=== PATIENT | female | born 1970 | race Hispanic/Latino ===

== ENCOUNTER 2017-07-09 12:59 | Emergency (ER) | payer BC, OTHER ==
[2017-07-09 13:18] LABS: BASOPHILS % (AUTO) 0.7 % (0.0-5.0); EOSINOPHILS % (AUTO) 1.5 % (0.0-8.0); HEMATOCRIT 40.2 % (36-48); LYMPHOCYTES % (AUTO) 30.7 % (21.0-51.0); MEAN CORPUSCULAR HGB CONC 34.1 g/dL (32.0-36.0); MONOCYTES % (AUTO) 6.9 % (3.0-13.0); NEUTROPHILS % (AUTO) 60.2 % (40.0-77.0); NUCLEATED RED BLOOD CELLS 0.1 % (0.0-0.19); PLATELET COUNT (AUTO) 228 K/uL (130-400); RED BLOOD CELL COUNT(AUTO) 4.73 MIL/uL (4.00-5.50); WHITE BLOOD COUNT (AUTO) 6.7 K/uL (4.8-10.8)
[2017-07-09] MEDS ORDERED: DICYCLOMINE HCL 20 MG TAB ONE (13:24)
[2017-07-09] MEDS ORDERED: LIDOCAINE HCL 2% VISCOUS 15 ML UDCUP ONE (13:24)
[2017-07-09] MEDS ORDERED: MAG HYDROX/AL HYDROX/SIMETH ES 30 ML SUSP UDCUP ONE (13:24)
[2017-07-09 13:27] LABS: CREATININE 0.7 mg/dL (0.5-1.5); POTASSIUM 3.7 mmol/L (3.5-5.1)
[2017-07-09 13:32] LABS: INR 0.99 (0.85-1.15); PARTIAL THROMBOPLASTIN TIME 26.2 SEC (26.3-35.5); PROTHROMBIN TIME 10.4 SEC (9.6-11.6)
[2017-07-09 13:50] LABS: ALBUMIN 4.2 g/dL (3.5-5.0); BILIRUBIN,TOTAL 0.6 mg/dL (0.2-1.0); CREATINE KINASE MB 0.6 ng/mL (0.5-3.6); TOTAL PROTEIN, SERUM 7.6 g/dL (6.0-8.3)
== END 2017-07-09 16:02 | disposition home or self-care (01) ==
LOC: EDH 12:59
DX: R13.10 Dysphagia, unspecified (principal); Z90.49 Acquired absence of other specified parts of digestive tract
CPT/HCPCS: 36415; 80053; 82550; 82553; 84484; 85025; 85610; 85730; 93005

== ENCOUNTER 2019-09-28 18:05 | Emergency (ER) | payer BC, OTHER ==
[2019-09-28 18:42] LABS: BASOPHILS % (AUTO) 0.5 % (0.0-5.0); EOSINOPHILS % (AUTO) 0.6 % (0.0-8.0); HEMATOCRIT 43.2 % (36-48); MEAN CORPUSCULAR HEMOGLOBIN 27.6 pg (27.0-33.0); MEAN CORPUSCULAR HGB CONC 32.2 g/dL (32.0-36.0); MEAN CORPUSCULAR VOLUME 85.7 fL (79-99); MONOCYTES % (AUTO) 6.6 % (3.0-13.0); NEUTROPHILS % (AUTO) 75.8 % (40.0-77.0); PLATELET COUNT (AUTO) 244 K/uL (130-400); RED BLOOD CELL COUNT(AUTO) 5.04 MIL/uL (4.00-5.50); WHITE BLOOD COUNT (AUTO) 11.2 K/uL (4.8-10.8)
[2019-09-28 18:52] LABS: CREATININE 0.8 mg/dL (0.5-1.5); POTASSIUM 3.6 mmol/L (3.5-5.1)
[2019-09-28] MEDS ORDERED: ASPIRIN 325 MG TABLET ONE (18:52)
[2019-09-28 18:57] LABS: ALBUMIN 4.4 g/dL (3.5-5.0); BILIRUBIN,TOTAL 0.6 mg/dL (0.2-1.0); TOTAL PROTEIN, SERUM 7.8 g/dL (6.0-8.3)
[2019-09-28] MEDS ORDERED: ONDANSETRON HCL 4 MG/2 ML VIAL ONE (19:23)
[2019-09-28] MEDS ORDERED: FAMOTIDINE/PF 20 MG/2 ML VIAL IV ONE (19:24)
[2019-09-28 19:40] LABS: INR 0.93 (0.85-1.15); PROTHROMBIN TIME 10.1 SEC (9.6-11.6)
[2019-09-28] MEDS ORDERED: LIDOCAINE HCL 2% VISCOUS 15 ML UDCUP ONE (20:22)
[2019-09-28] MEDS ORDERED: MAG HYDROX/AL HYDROX/SIMETH ES 30 ML SUSP UDCUP ONE (20:23)
== END 2019-09-28 21:46 | disposition home or self-care (01) ==
LOC: EDH 18:05
DX: K29.70 Gastritis, unspecified, without bleeding (principal); K20.9 Esophagitis, unspecified; I10 Essential (primary) hypertension; Z90.49 Acquired absence of other specified parts of digestive tract
CPT/HCPCS: 36415; 71045; 80053; 82550; 83690; 84484 ×2; 85025; 85610; 85730; 93005 ×2; 96361; 96374; 96375; 99285; J2405; J3490

== ENCOUNTER 2023-03-30 08:20 | Observation (INO) | payer BC ==
[2023-03-27 14:46] VITALS: BP 138/87; PULSE 68; RESP 15
[2023-03-27 15:11] LABS: BASOPHILS # (AUTO) 0.03 K/uL (0.00-0.20); BASOPHILS % (AUTO) 0.5 % (0.0-5.0); EOSINOPHILS # (AUTO) 0.08 K/uL (0.00-0.70); EOSINOPHILS % (AUTO) 1.2 % (0.0-8.0); HEMATOCRIT 43.4 % (36-48); IMMATURE GRANULOCYTE ABSOLUTE 0.02 K/uL (0-1); LYMPHOCYTES # (AUTO) 1.4 K/uL (1.0-4.8); LYMPHOCYTES % (AUTO) 21.5 % (21.0-51.0); MEAN CORPUSCULAR HEMOGLOBIN 29.4 pg (27.0-33.0); MEAN CORPUSCULAR HGB CONC 33.4 g/dL (32.0-36.0); MEAN CORPUSCULAR VOLUME 87.9 fL (79-99); MONOCYTES # (AUTO) 0.4 K/uL (0.1-1.0); MONOCYTES % (AUTO) 6.6 % (3.0-13.0); NEUTROPHILS # (AUTO) 4.7 K/uL (1.8-7.7); NEUTROPHILS % (AUTO) 69.9 % (40.0-77.0); PLATELET COUNT (AUTO) 204 K/uL (130-400); RED BLOOD CELL COUNT(AUTO) 4.94 MIL/uL (4.00-5.50); RED CELL DISTRIBUTION WIDTH 12.2 % (11.0-15.5); WHITE BLOOD COUNT (AUTO) 6.7 K/uL (4.8-10.8)
[2023-03-27 15:19] LABS: CREATININE 0.7 mg/dL (0.5-1.5); POTASSIUM 4.2 mmol/L (3.5-5.1)
[2023-03-30] VITALS (28 sets, daily range): BP systolic 102–141; BP diastolic 54–80; PULSE 74–102; RESP 15–20; O2SAT 98–99
[~2023-03-30] VITALS: Ht 162.6 cm; Wt 77.9 kg
[~2023-03-30 08:20] MED LIST: LOSA25TA41 PO; METF-444 PO
[2023-03-30] MEDS ORDERED: DEXTROSE 50%-WATER 50 ML DISP.SYRIN IV ONE (09:06)
[2023-03-30] MEDS ORDERED: CEFAZOLIN SODIUM 2 GM VIAL ONE (09:16)
[2023-03-30] MEDS ORDERED: 0.9%NACL 1000ML 1,000 ML IV ONE (09:16)
[2023-03-30] MEDS ORDERED: HYDROMORPHONE 1 MG INJ ONE (12:39)
[2023-03-30] MEDS ORDERED: FAMOTIDINE 20MG VIAL IV ONE (12:39)
[2023-03-30] MEDS ORDERED: LIDOCAINE PF 100MG/5ML (2%) SYRINGE 5ML ONE (14:26)
[2023-03-30] MEDS ORDERED: PROPOFOL 10 MG/ML 20ML VIAL IV ONE (14:26)
[2023-03-30] MEDS ORDERED: MIDAZOLAM HCL 1 MG/ML 2ML VIAL ONE (14:27)
[2023-03-30] MEDS ORDERED: FENTANYL CITRATE PF 50 MCG/1 ML 2ML VIAL ONE (14:27)
[2023-03-30] MEDS ORDERED: ROCURONIUM 10MG/1ML SYR 10 MG/ML ML ONE ×2 (14:35→14:37)
[2023-03-30] MEDS ORDERED: BUPIVACAINE/PF 0.5% 30ML VIAL ONE (14:45)
[2023-03-30] MEDS ORDERED: CEFAZOLIN SODIUM 2 GM VIAL IVPB ONE (15:20)
[2023-03-30] MEDS ORDERED: BUPIVACAINE/PF 0.5% 30ML VIAL INJ ONE ×2 (15:30→17:00)
[2023-03-30] MEDS ORDERED: KETOROLAC 30MG VIAL (30MG/ML) ONE (16:35)
[2023-03-30] MEDS ORDERED: DEXAMETHASONE SOD PHOSPHATE 4 MG/ML 1ML VIAL ONE (16:36)
[2023-03-30] MEDS ORDERED: ONDANSETRON 4MG INJ ONE (16:37)
[2023-03-30] MEDS ORDERED: MEPERIDINE-PF 25 MG/ML SYG ONE ×2 (17:24→17:40)
[2023-03-30] MEDS: ENOXAPARIN SODIUM 30 MG/0.3 ML SQ SCH (17:30)
[2023-03-30] MEDS ORDERED: PROCHLORPERAZINE 10MG/2ML INJ IV PRN (17:30)
[2023-03-30] MEDS ORDERED: ONDANSETRON 4MG INJ IVP PRN (17:30)
[2023-03-30] MEDS ORDERED: KETOROLAC 15MG/ML VIAL (15MG/ML) IV PRN (18:00)
[2023-03-30] MEDS ORDERED: MORPHINE 2 MG SYG IVP PRN (18:00)
[2023-03-30] MEDS: D5LR-20 MEQ KCL 1000 ML 1,000 ML IV SCH (18:41)
[2023-03-31] MEDS: D5LR-20 MEQ KCL 1000 ML 1,000 ML IV SCH ×2 (00:02→06:30)
[2023-03-31] MEDS: HYDROCODONE/ACETAMINOPHEN 7.5/325 MG 15 ML UDCUP PO PRN ×2 (02:39→13:45)
[2023-03-31 04:00] VITALS: BP 116/70; PULSE 90; RESP 19
[2023-03-31] MEDS: ENOXAPARIN SODIUM 30 MG/0.3 ML SQ SCH (04:08)
[2023-03-31 07:14] VITALS: PULSE 89; RESP 20; O2SAT 97
[2023-03-31 08:00] VITALS: BP 117/70; PULSE 81; RESP 19
[2023-03-31 08:30] VITALS: O2SAT 99
[2023-03-31 12:00] VITALS: BP 137/78; PULSE 67; RESP 18
[2023-03-31] MEDS ORDERED: SIMETHICONE 80 MG TAB.CHEW PO SCH (15:30)
[2023-03-31 16:00] VITALS: BP 154/85; PULSE 68; RESP 17
== END 2023-03-31 16:20 | disposition home or self-care (01) ==
LOC: DAH 08:20 → DAHIP 08:21 → INTOOBSV 08:21 → DAH 08:21 → 4DH 18:40
PROVIDERS: ADMIT Surgery; ATTEND Surgery
DX: K44.9 Diaphragmatic hernia without obstruction or gangrene (principal); R19.2 Visible peristalsis; I10 Essential (primary) hypertension; E11.9 Type 2 diabetes mellitus without complications; E78.5 Hyperlipidemia, unspecified; K64.9 Unspecified hemorrhoids; K57.90 Diverticulosis of intestine, part unspecified, without perforation or abscess without bleeding; Z90.49 Acquired absence of other specified parts of digestive tract; Z79.899 Other long term (current) drug therapy; Z98.890 Other specified postprocedural states
CPT/HCPCS: 80048; 84703; 85025; 86850 ×2; 86900 ×2; 86901 ×2; 36415 ×2; 93005; 43280; 96374; 82948 ×8; 43235; 96372; 97161; A6260; S2900; A4663; J7030 ×2; A4344; A4215 ×2; J3490; J3010; J1170; J7070; J2001; J2250; J2704; J2405; J1885 ×2; J0665 ×2; J1100; J2175 ×2; J3480 ×2; J0690 ×2; G0168; C1781; A4223; A4222; A4221; A4600; G0378 ×3; J1650

== ENCOUNTER → 2023-04-19 | Outpatient (CLI) | payer BC ==
[~2023-04-19] MED LIST changes: +DIATR MEGLU/DIATRIZOATE SODIUM 30 ML BOTTLE ONE
== END | disposition home or self-care (01) ==
LOC: RAH 08:50
PROVIDERS: ATTEND Surgery
DX: K21.9 Gastro-esophageal reflux disease without esophagitis (principal); K44.9 Diaphragmatic hernia without obstruction or gangrene; K31.89 Other diseases of stomach and duodenum
CPT/HCPCS: 74240; Q9963